=== PATIENT | male | born 1960 | race Caucasian/White ===

== ENCOUNTER → 2019-10-17 | Outpatient (CLI) | payer BC | LOC: BHSO 09:58 | DX: F41.1 Generalized anxiety disorder (principal) ==

== ENCOUNTER → 2019-10-25 | Outpatient (CLI) | payer BC | LOC: BHSO 08:57 | DX: F41.1 Generalized anxiety disorder (principal) ==

== ENCOUNTER 2022-01-08 10:40 | Emergency (ER) | payer BC ==
[~2022-01-08] VITALS: Ht 177.8 cm; Wt 90.9 kg
[2022-01-08 10:47] VITALS: TEMP 98.1
[2022-01-08] MEDS ORDERED: XALATAN EYE DROPS OU (11:25)
[2022-01-08] MEDS ORDERED: CELEXA 20MG20 MG/TAB PO (11:25)
[2022-01-08] MEDS ORDERED: SIMBRINZA 0.2%-18 ML OP (11:26)
[2022-01-08 12:58] VITALS: BP 118/85; PULSE 91
== END 2022-01-08 13:16 | disposition short-term general hospital (02) ==
LOC: COL.ER 10:40
DX: S62.521A Displaced fracture of distal phalanx of right thumb, initial encounter for closed fracture (principal); X50.1XXA Overexertion from prolonged static or awkward postures, initial encounter